=== PATIENT | male | born 1950 | race Caucasian/White ===

== ENCOUNTER 2021-03-30 12:36 | Inpatient (IN) | payer MEDICARE ==
[~2021-03-30] VITALS: Ht 185.4 cm; Wt 84.5 kg
[2021-03-30] MEDS ORDERED: ENOXAPARIN SOD 100 MG/1 ML SYRINGE SC ONE (13:00)
[2021-03-30 13:13] LABS: Basophils # (auto) 0.1 10 ^3/uL (0-0.2); Basophils % (auto) 1.2 % (0.0-2.0); Eosinophils # (auto) 0 10 ^3/uL (0-0.8); Hemoglobin 15.5 g/dL (13.5-17.5); Lymphocytes # (auto) 1.1 10 ^3/uL (0.4-5.4); Mean Corpuscular Hemoglobin 30.5 pg (28.0-32.0); Mean Corpuscular Hgb Conc. 35.1 g/dL (32.0-36.0); Monocytes # (auto) 0.5 10 ^3/uL (0-1.3); Monocytes % (auto) 9.3 % (0.0-12.0); Neutrophils # (auto) 3.9 10 ^3/uL (1.6-8.6); Neutrophils % (auto) 70.5 % (37.0-80.0); Nucleated Red Blood Cells % 0.2 %; Platelet Count (auto) 240 10^3/uL (140-450); Red Blood Cells 5.06 10^6/uL (4.5-5.90); Red Cell Distribution Width 14.9 % (11.8-14.3); White Blood Cell 5.6 10^3/uL (4.4-10.8)
[2021-03-30 13:29] LABS: Albumin 3.6 g/dL (3.4-5.0); Calcium 8.8 mg/dL (8.5-10.1); Potassium 3.6 mmol/L (3.5-5.1)
[2021-03-30] MEDS ORDERED: IOHEXOL 350 MG/ML 100ML IJ ONE ×2 (13:29→14:35)
[2021-03-30 13:34] LABS: BUN/Creatinine Ratio 16.5; Bilirubin, Total 0.5 mg/dL (0.2-1.0); Total Protein 8.1 g/dL (6.4-8.2)
[2021-03-30 14:30] LABS: INR 1.12 (0.9-1.15); Partial Thromboplastin Time 26.5 sec (23.0-31.2)
[2021-03-30] MEDS ORDERED: ACETAMINOPHEN 500 MG TAB PO PRN (17:00)
[2021-03-30] MEDS ORDERED: MORPHINE SULF INJ 2 MG/ML SYRINGE 1ML IV PRN ×2 (17:00)
[2021-03-30] MEDS ORDERED: LISINOPRIL 5 MG TAB PO ONE (17:00)
[2021-03-30] MEDS ORDERED: NITROGLYCERIN 0.4 MG SL TAB SL PRN (17:00)
[2021-03-30] MEDS ORDERED: levoFLOXacin 500MG 100 ML IV ONE (17:00)
[2021-03-30] MEDS ORDERED: LACTULOSE 20Gm/30ML SOLN PO PRN (17:00)
[2021-03-30] MEDS ORDERED: ONDANSETRON HCL 4 MG/2 ML VIAL IV PRN (17:00)
[2021-03-30] MEDS ORDERED: traMADol HCL 50 MG TAB PO PRN (17:00)
[2021-03-30] MEDS: ENOXAPARIN SOD 100 MG/1 ML SYRINGE SC SCH (21:08)
[2021-03-30] MEDS: FAMOTIDINE 20 MG TAB PO SCH (21:09)
[2021-03-30 22:16] VITALS: BP 150/86
[2021-03-31 05:01] VITALS: BP 139/74
[2021-03-31 09:00] VITALS: BP 150/82
[2021-03-31] MEDS: FAMOTIDINE 20 MG TAB PO SCH (09:27)
[2021-03-31] MEDS: ENOXAPARIN SOD 100 MG/1 ML SYRINGE SC SCH (09:43)
[2021-03-31] MEDS ORDERED: levoFLOXacin 500MG 100 ML IV SCH (10:00)
[2021-03-31] MEDS ORDERED: LISINOPRIL 5 MG TAB PO SCH (10:00)
[2021-03-31 12:53] VITALS: BP 133/90
== END 2021-03-31 17:03 | disposition home or self-care (01) | DRG 300 ==
LOC: ER 12:36 → TELE 16:48 → TELE-WESTW 18:45
PROVIDERS: ADMIT Internal Medicine; ATTEND Internal Medicine
DX: I82.401 Acute embolism and thrombosis of unspecified deep veins of right lower extremity (principal); L03.115 Cellulitis of right lower limb; J44.9 Chronic obstructive pulmonary disease, unspecified; R59.1 Generalized enlarged lymph nodes; E04.1 Nontoxic single thyroid nodule; I10 Essential (primary) hypertension; Z20.822 Contact with and (suspected) exposure to COVID-19; Z86.73 Personal history of transient ischemic attack (TIA), and cerebral infarction without residual deficits; Z87.891 Personal history of nicotine dependence
CPT/HCPCS: 36415; 71045; 71275; 76536; 80053; 84443; 85025; 85379; 85610; 85730; 87426; 93005; 96365; 96366; 96372; G0378; J1956

== ENCOUNTER 2021-04-04 07:02 | Emergency (ER) | payer MEDICARE ==
[~2021-04-04] VITALS: Ht 185.4 cm; Wt 86.2 kg
[2021-04-04 08:11] LABS: Basophils # (auto) 0.1 10 ^3/uL (0-0.2); Basophils % (auto) 1.1 % (0.0-2.0); Eosinophils # (auto) 0 10 ^3/uL (0-0.8); Hematocrit 45.2 % (41.0-53.0); Hemoglobin 15.4 g/dL (13.5-17.5); Lymphocytes % (auto) 16.9 % (10.0-50.0); Mean Corpuscular Hemoglobin 29.8 pg (28.0-32.0); Mean Corpuscular Hgb Conc. 34.2 g/dL (32.0-36.0); Mean Corpuscular Volume 87.3 fL (80.0-100.0); Monocytes # (auto) 0.7 10 ^3/uL (0-1.3); Monocytes % (auto) 12.5 % (0.0-12.0); Neutrophils % (auto) 69.5 % (37.0-80.0); Platelet Count (auto) 279 10^3/uL (140-450); Red Blood Cells 5.18 10^6/uL (4.5-5.90); Red Cell Distribution Width 14.9 % (11.8-14.3); White Blood Cell 5.8 10^3/uL (4.4-10.8)
[2021-04-04 08:28] LABS: Alanine Aminotransferase 24 U/L (16-61); Albumin 3.6 g/dL (3.4-5.0); Anion Gap 4 (5-15); Aspartate Aminotransferase 26 U/L (15-37); BUN/Creatinine Ratio 18.6; Blood Urea Nitrogen 21 mg/dL (7-18); Calcium 9.1 mg/dL (8.5-10.1); Carbon Dioxide 28 mmol/L (21-32); Chloride 108 mmol/L (98-107); GFR African American 82 mL/min; GFR Non-African American 68 mL/min; Glucose 104 mg/dL (74-106); Potassium 4.2 mmol/L (3.5-5.1); Sodium 140 mmol/L (136-145)
[2021-04-04 08:33] LABS: Alkaline Phosphatase 93 U/L (45-117); Bilirubin, Total 0.4 mg/dL (0.2-1.0); Total Protein 8.1 g/dL (6.4-8.2)
[2021-04-04 09:20] LABS: INR 1.02 (0.9-1.15); Partial Thromboplastin Time 26.4 sec (23.0-31.2)
[2021-04-04 10:24] LABS: Urine Bacteria NONE SEEN /hpf (None Seen); Urine Blood Negative /uL (Negative); Urine Mucus FEW (None Seen); Urine Specific Gravity 1.017 (1.001-1.035); Urine WBC 1 /hpf (0 - 3)
[2021-04-04] MEDS ORDERED: HYDR25TA5 PO (10:55)
[2021-04-04] MEDS ORDERED: APIX5TAB PO (10:55)
[2021-04-04 12:32] VITALS: BP 156/90
== END 2021-04-04 12:41 | disposition home or self-care (01) ==
LOC: ER 07:02
DX: E04.1 Nontoxic single thyroid nodule (principal); Z20.822 Contact with and (suspected) exposure to COVID-19
CPT/HCPCS: 36415; 71045; 80053; 81001; 84439; 84484; 85025; 85610; 85730; 87426

== ENCOUNTER → 2021-06-02 | Outpatient (CLI) | payer MEDICARE ==
[~2021-06-02] MED LIST: APIX5TAB PO; HYDR25TA5 PO
[2021-06-02 09:24] LABS: Basophils # (auto) 0.1 10 ^3/uL (0-0.2); Basophils % (auto) 0.9 % (0.0-2.0); Eosinophils # (auto) 0 10 ^3/uL (0-0.8); Hematocrit 43.8 % (41.0-53.0); Hemoglobin 15.7 g/dL (13.5-17.5); Lymphocytes # (auto) 1.2 10 ^3/uL (0.4-5.4); Lymphocytes % (auto) 15.3 % (10.0-50.0); Mean Corpuscular Hemoglobin 29.9 pg (28.0-32.0); Mean Corpuscular Hgb Conc. 35.9 g/dL (32.0-36.0); Mean Corpuscular Volume 83.3 fL (80.0-100.0); Monocytes # (auto) 0.8 10 ^3/uL (0-1.3); Monocytes % (auto) 10.1 % (0.0-12.0); Neutrophils # (auto) 5.6 10 ^3/uL (1.6-8.6); Neutrophils % (auto) 73.7 % (37.0-80.0); Nucleated Red Blood Cells % 0.5 %; Red Blood Cells 5.25 10^6/uL (4.5-5.90); Red Cell Distribution Width 14.6 % (11.8-14.3); White Blood Cell 7.5 10^3/uL (4.4-10.8)
[2021-06-02 09:46] LABS: Urine Bacteria NONE SEEN /hpf (None Seen); Urine Blood Negative /uL (Negative); Urine Hyaline Cast FEW /lpf (0 - 2); Urine Mucus FEW (None Seen); Urine Specific Gravity 1.023 (1.001-1.035); Urine WBC 1 /hpf (0 - 3)
[2021-06-02 09:53] LABS: Potassium 3.4 mmol/L (3.5-5.1)
[2021-06-02 10:13] LABS: Albumin 3.3 g/dL (3.4-5.0); BUN/Creatinine Ratio 15.7; Bilirubin, Total 0.5 mg/dL (0.2-1.0); Calcium 9.2 mg/dL (8.5-10.1); Total Protein 8.2 g/dL (6.4-8.2)
== END | disposition home or self-care (01) ==
LOC: LAB 08:56
PROVIDERS: ATTEND Student in an Organized Health Care Education/Training Program
DX: I10 Essential (primary) hypertension (principal); E04.1 Nontoxic single thyroid nodule; R73.9 Hyperglycemia, unspecified
CPT/HCPCS: 36415; 80053; 80061; 81001; 83036; 84439; 84443; 85025

== ENCOUNTER 2021-10-07 14:55 | Emergency (ER) | payer MEDICARE ==
[~2021-10-07] VITALS: Ht 185.4 cm; Wt 79.4 kg
[2021-10-07 16:39] VITALS: BP 108/72
[2021-10-07] MEDS ORDERED: APIX5TAB PO (16:54)
== END 2021-10-07 17:00 | disposition home or self-care (01) ==
LOC: ER 14:55
DX: F12.10 Cannabis abuse, uncomplicated (principal); I10 Essential (primary) hypertension; Z86.73 Personal history of transient ischemic attack (TIA), and cerebral infarction without residual deficits; Z76.0 Encounter for issue of repeat prescription; Z86.718 Personal history of other venous thrombosis and embolism